=== PATIENT | male | born 1980 | race African-American/Black ===

== ENCOUNTER 2017-08-01 19:43 | Emergency (ER) | payer BC, OTHER ==
[~2017-08-01] VITALS: Ht 175.3 cm; Wt 63.5 kg
[~2017-08-01 19:43] MED LIST: PERCOCET 5-3251 EACH PO; VICODIN 5-5001 EACH PO
[2017-08-01 20:15] VITALS: BP 120/74
[2017-08-01] MEDS ORDERED: Mylanta II UD 30ml ORAL ONE (20:15)
[2017-08-01] MEDS ORDERED: Lidocaine 2% Visc 15ml soln ORAL ONE (20:15)
[2017-08-01] MEDS ORDERED: Dicyclomine HCl 10mg/5ml oral soln ORAL ONE (20:15)
[2017-08-01 21:01] LABS: BASOPHILS % (AUTO) 0.9 % (0.0-2.0); EOSINOPHILS % (AUTO) 1.4 % (0.0-3.0); MEAN CORPUSCULAR VOLUME 100 FL (80-99); MONOCYTES % (AUTO) 14.4 % (1.0-10.0); NEUTROPHILS % (AUTO) 59.4 % (45.0-75.0); PLATELET COUNT 178 K/UL (150-450); RED BLOOD COUNT 4.76 M/UL (4.70-6.10); RED CELL DISTRIBUTION WIDTH 13.3 % (11.6-14.8); WHITE BLOOD COUNT 5.6 K/UL (4.8-10.8)
[2017-08-01 21:08] LABS: ANION GAP 5 mmol/L (5-15); CALCIUM 8.8 MG/DL (8.5-10.1); CARBON DIOXIDE 30 MMOL/L (21-32); CHLORIDE 104 MMOL/L (98-107); CREATININE 1.1 MG/DL (0.55-1.30); GLOMERULAR FILTRATION RATE > 60 mL/min (>60); POTASSIUM 3.8 MMOL/L (3.5-5.1); SODIUM 139 MMOL/L (136-145)
[2017-08-01 21:12] LABS: ALANINE AMINOTRANSFERASE 24 U/L (12-78); ALBUMIN/GLOBULIN RATIO 0.9 (1.0-2.7); ASPARTATE AMINO TRANSFERASE 27 U/L (15-37); LIPASE 143 U/L (73-393); TOTAL PROTEIN 7.4 G/DL (6.4-8.2)
[2017-08-01] MEDS ORDERED: ZOFRAN ODT4 MG ORAL (22:01)
[2017-08-01] MEDS ORDERED: RANITIDINE HCL150 MG ORAL (22:01)
[2017-08-01 22:10] VITALS: BP 125/76
[2017-08-01 22:15] VITALS: BP 125/76
--- NOTE | 2017-08-05 06:46 | Emergency Room Report ---
History of Present Illness General Chief Complaint: Abdominal Pain Source: Patient Present Illness HPI 36-year-old male presents ED complaining of abdominal pain. Started 2 days ago. Burning, epigastric, 5/10, nonradiating. Notes multiple episodes of vomiting. Denies fevers or chills. Denies chest pain shortness of breath. Denies any diarrhea. No other aggravating relieving factors. Denies any other associated symptoms Allergies: Coded Allergies: No Known Allergies (Unverified , 08/25/12) Patient History Past Medical History: none Past Surgical History: none Pertinent Family History: none Social History: Denies: smoking, alcohol use, drug use Immunizations: UTD Reviewed Nursing Documentation: PMH: Agreed, PSxH: Agreed Nursing Documentation-PMH Past Medical History: No Stated History Review of Systems All Other Systems: negative except mentioned in HPI Physical Exam Vital Signs Date Time Temp Pulse Resp B/P (MAP) Pulse Ox O2 Delivery O2 Flow Rate FiO2 08/01/17 20:01 97.7 66 18 119/78 97 Room Air Sp02 EP Interpretation: reviewed, normal General Appearance: no apparent distress, alert, GCS 15, non-toxic Head: normocephalic Eyes: bilateral eye normal inspection, bilateral eye PERRL ENT: normal ENT inspection Neck: normal inspection Respiratory: chest non-tender, lungs clear, normal breath sounds, speaking full sentences Cardiovascular #1: regular rate, rhythm, no edema Gastrointestinal: tenderness - epigastric Rectal: deferred Genitourinary: no CVA tenderness Musculoskeletal: back normal Neurologic: alert, oriented x3, responsive, motor strength/tone normal, sensory intact, speech normal Psychiatric: normal inspection Skin: normal inspection Lymphatic: normal inspection Medical Decision Making Diagnostic Impression: Primary Impression: Gastritis Qualified Codes: K29.00 - Acute gastritis without bleeding ER Course Hospital Course 36-year-old M presents to ED with epigastric pain with N/V. differential diagnosis: gastritis, SBO, cholecystits Clinical course Patient placed on stretcher. On playground monitor. After initial history and physical I ordered labs, IV fluids, Zofran and pepcid Labs - no leukocytosis, no electrolyte abnormalities, LFTs normal, UA unremarkable Upon reassessment, patient states pain has improved. findings consistent with gastritis I feel this is a highly complex case requiring extensive working including EKG/ Rhythm strip, Xray/CT/US, Blood/urine lab work, repeat exams while in ED, and administration of strong opiates/narcotics for pain control, admission to hospital or close patient follow up. Diagnosis - gastritis Stable and discharged to home with prescriptions for Zantac, zantac. Followup with PMD. Return to ED if symptoms recur or worsen Labs Test 08/01/17 20:20 White Blood Count 5.6 K/UL (4.8-10.8) Red Blood Count 4.76 M/UL (4.70-6.10) Hemoglobin 15.7 G/DL (14.2-18.0) Hematocrit 47.5 % (42.0-52.0) Mean Corpuscular Volume 100 FL (80-99) Mean Corpuscular Hemoglobin 33.0 PG (27.0-31.0) Mean Corpuscular Hemoglobin Concent 33.0 G/DL (32.0-36.0) Red Cell Distribution Width 13.3 % (11.6-14.8) Platelet Count 178 K/UL (150-450) Mean Platelet Volume 6.0 FL (6.5-10.1) Neutrophils (%) (Auto) 59.4 % (45.0-75.0) Lymphocytes (%) (Auto) 24.0 % (20.0-45.0) Monocytes (%) (Auto) 14.4 % (1.0-10.0) Eosinophils (%) (Auto) 1.4 % (0.0-3.0) Basophils (%) (Auto) 0.9 % (0.0-2.0) Sodium Level 139 MMOL/L (136-145) Potassium Level 3.8 MMOL/L (3.5-5.1) Chloride Level 104 MMOL/L (98-107) Carbon Dioxide Level 30 MMOL/L (21-32) Anion Gap 5 mmol/L (5-15) Blood Urea Nitrogen 12 mg/dL (7-18) Creatinine 1.1 MG/DL (0.55-1.30) Estimat Glomerular Filtration Rate > 60 mL/min (>60) Glucose Level 75 MG/DL (74-106) Calcium Level 8.8 MG/DL (8.5-10.1) Total Bilirubin 0.3 MG/DL (0.2-1.0) Aspartate Amino Transf (AST/SGOT) 27 U/L (15-37) Alanine Aminotransferase (ALT/SGPT) 24 U/L (12-78) Alkaline Phosphatase 89 U/L (46-116) Total Protein 7.4 G/DL (6.4-8.2) Albumin 3.6 G/DL (3.4-5.0) Globulin 3.8 g/dL Albumin/Globulin Ratio 0.9 (1.0-2.7) Lipase 143 U/L (73-393) Last Vital Signs Date Time Temp Pulse Resp B/P (MAP) Pulse Ox O2 Delivery O2 Flow Rate FiO2 08/01/17 22:15 97.6 74 16 125/76 99 Room Air Status: improved Disposition: HOME, SELF-CARE Condition: Stable Scripts Ranitidine Hcl* (ZANTAC*) 150 Mg Tablet 150 MG ORAL TWICE A DAY, #30 TAB Prov: ANNE MARIE DELANEY M.D. 08/01/17 Ondansetron Odt* (ZOFRAN ODT*) 4 Mg Tab.rapdis 4 MG ORAL Q6H Y for Nausea & Vomiting, #30 TAB 0 Refills Prov: ANNE MARIE DELANEY M.D. 08/01/17 Patient Instructions: Gastritis, Adult ANNE MARIE DELANEY M.D. Aug 05, 2017 06:46
== END 2017-08-01 22:15 | disposition home or self-care (01) ==
LOC: EMR 20:32
DX: K29.70 Gastritis, unspecified, without bleeding (principal)
CPT/HCPCS: 36415; 80053; 83690; 85025; 96361; 96374; 96375; 99284; J2405; S0028

== ENCOUNTER 2018-12-22 09:06 | Emergency (ER) | payer OTHER ==
[~2018-12-22] VITALS: Ht 172.7 cm; Wt 65.8 kg
[~2018-12-22 09:06] MED LIST changes: +RANITIDINE HCL150 MG ORAL; +ZOFRAN ODT4 MG ORAL
[2018-12-22 09:19] VITALS: BP 127/83
[2018-12-22] MEDS ORDERED: NKM (09:23)
--- NOTE | 2018-12-22 09:26 | NUR ---
ED Nurse Note: Pt. AAox4. Ambulatory. came in to ER due to lower back pain and bilateral posterior leg pain x 3 days. 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
--- NOTE | 2018-12-22 09:57 | Emergency Room Report ---
History of Present Illness General Chief Complaint: Pain Source: Patient Present Illness HPI The patient states that 3 days ago he developed pain in his lower legs. He states the pain started in his calves. He states they were throbbing and there was soreness. He states the pain then moved to the back of his legs to his hamstring area and up to his low back. He states the pain is diffuse on both lower extremities and he has difficulty getting comfortable. He did have some wrist pain on Saturday that states that has since resolved. He denies recent illness. He denies cough or congestion. He denies sore throat. He denies neck pain. He denies headache. He denies blurry vision. He denies change in his activity. He denies any workout or long walk. He states that for his job he is constantly walking and doing heavy lifting, however, he has been doing this for 8 years. He states that he has never had symptoms like this. He denies weakness. He denies tingling or numbness. He denies swelling. He states that he does drink alcohol, smoke tobacco and uses marijuana. He currently denies using any other drugs. He is not on any medications. He has no other complaints. Allergies: Coded Allergies: No Known Allergies (Unverified , 08/25/12) Patient History Past Medical History: none, see triage record Social History: Reports: smoking, alcohol use, drug use - THC Reviewed Nursing Documentation: PMH: Agreed; PSxH: Agreed Nursing Documentation-PM Past Medical History: No Stated History Review of Systems All Other Systems: negative except mentioned in HPI Physical Exam Vital Signs Date Time Temp Pulse Resp B/P (MAP) Pulse Ox O2 Delivery O2 Flow Rate FiO2 12/22/18 09:19 98.4 60 16 98 Room Air 12/22/18 09:19 127/83 Sp02 EP Interpretation: reviewed, normal General Appearance: no apparent distress, alert, GCS 15, non-toxic Head: normocephalic, atraumatic Eyes: bilateral eye normal inspection, bilateral eye PERRL ENT: hearing grossly normal, normal pharynx, no angioedema, normal voice Neck: full range of motion, supple/symm/no masses Respiratory: chest non-tender, lungs clear, normal breath sounds, no respiratory distress, no retraction, no accessory muscle use, speaking full sentences Cardiovascular #1: regular rate, rhythm, no edema Gastrointestinal: normal bowel sounds, non tender, soft, non-distended, no guarding, no rebound Rectal: deferred Musculoskeletal: back normal, gait/station normal, normal range of motion, tender - Mildly TTP along the calves and hamstrings. No TTP in thighs. No swelling or erythema. Neurologic: alert, oriented x3, responsive, motor strength/tone normal, sensory intact, speech normal Psychiatric: judgement/insight normal, memory normal, mood/affect normal, no suicidal/homicidal ideation Skin: normal color, no rash, warm/dry, well hydrated Medical Decision Making Diagnostic Impression: Primary Impression: Muscular aches ER Course Had symmetric and diffuse muscle aches in the bilateral lower extremities. The patient describes symptoms starting from the calves and moving up to the low back. Differential diagnosis: Rhabdomyolysis, Guillain-Frank syndrome, viral syndrome , lumbar radiculopathy, myositis, electrolyte abnormalities, muscle aches to name a few. Given the extensive differential, I did obtain basic labs to include a CBC, CMP , CK and ESR and CRP which showed no significant findings. I also obtained bilateral venous ultrasound to assess for DVT. This was negative for DVT Bilaterally. Lumbar spine x-ray showed no significant abnormalities. See official report in the EMR. Laboratory Tests Test 12/22/18 09:58 12/22/18 10:50 White Blood Count 5.6 K/UL (4.8-10.8) 7.2 K/UL (4.8-10.8) Red Blood Count 4.76 M/UL (4.70-6.10) 4.73 M/UL (4.70-6.10) Hemoglobin 15.4 G/DL (14.2-18.0) 15.2 G/DL (14.2-18.0) Hematocrit 44.9 % (42.0-52.0) 45.1 % (42.0-52.0) Mean Corpuscular Volume 94 FL (80-99) 95 FL (80-99) Mean Corpuscular Hemoglobin 32.4 PG (27.0-31.0) H 32.1 PG (27.0-31.0) H Mean Corpuscular Hemoglobin Concent 34.4 G/DL (32.0-36.0) 33.6 G/DL (32.0-36.0) Red Cell Distribution Width 12.4 % (11.6-14.8) 12.3 % (11.6-14.8) Platelet Count K/UL (150-450) 175 K/UL (150-450) Mean Platelet Volume 10.5 FL (6.5-10.1) H 5.0 FL (6.5-10.1) L Neutrophils (%) (Auto) % (45.0-75.0) 68.6 % (45.0-75.0) Lymphocytes (%) (Auto) % (20.0-45.0) 23.4 % (20.0-45.0) Monocytes (%) (Auto) % (1.0-10.0) 6.5 % (1.0-10.0) Eosinophils (%) (Auto) % (0.0-3.0) 0.4 % (0.0-3.0) Basophils (%) (Auto) % (0.0-2.0) 1.1 % (0.0-2.0) Differential Total Cells Counted 100 Neutrophils % (Manual) 60 % (45-75) Lymphocytes % (Manual) 34 % (20-45) Monocytes % (Manual) 4 % (1-10) Eosinophils % (Manual) 2 % (0-3) Basophils % (Manual) 0 % (0-2) Band Neutrophils 0 % (0-8) Platelet Estimate Adequate Platelet Morphology Normal Red Blood Cell Morphology Normal Sodium Level 138 MMOL/L (136-145) Potassium Level 5.2 MMOL/L (3.5-5.1) H Chloride Level 106 MMOL/L (98-107) Carbon Dioxide Level 28 MMOL/L (21-32) Anion Gap 4 mmol/L (5-15) L Blood Urea Nitrogen 12 mg/dL (7-18) Creatinine 0.8 MG/DL (0.55-1.30) Estimate Glomerular Filtration Rate > 60 mL/min (>60) Glucose Level 93 MG/DL (74-106) Calcium Level 8.7 MG/DL (8.5-10.1) Total Bilirubin 0.4 MG/DL (0.2-1.0) Aspartate Amino Transferase (AST) 48 U/L (15-37) H Alanine Aminotransferase (ALT) 44 U/L (12-78) Alkaline Phosphatase 98 U/L (46-116) Total Creatine Kinase 554 U/L (26-308) H C-Reactive Protein, Quantitative < 0.4 mg/dL (0.00-0.90) Total Protein 7.2 G/DL (6.4-8.2) Albumin 3.7 G/DL (3.4-5.0) Globulin 3.5 g/dL Albumin/Globulin Ratio 1.1 (1.0-2.7) Urine Opiates Screen Negative (NEGATIVE) Urine Barbiturates Screen Negative (NEGATIVE) Phencyclidine (PCP) Screen Negative (NEGATIVE) Urine Amphetamines Screen Negative (NEGATIVE) Urine Benzodiazepines Screen Negative (NEGATIVE) Urine Cocaine Screen Negative (NEGATIVE) Urine Marijuana (THC) Screen Positive (NEGATIVE) H Erythrocyte Sedimentation Rate Pending Other X-Ray Diagnostic Results Other X-Ray Diagnostic Results : X-Ray ordered: L-spine xray # of Views/Limited Vs Complete: Complete Indication: Pain EP Interpretation: Yes Interpretation: no dislocation, no soft tissue swelling, no fractures, nonspecific bowel gas Impression: No acute disease Electronically Signed by: Faviola Chaudhry DO CT/MRI/US Diagnostic Results CT/MRI/US Diagnostic Results : Imaging Test Ordered: BLE US venous Impression No DVT. See official report. Last Vital Signs Date Time Temp Pulse Resp B/P (MAP) Pulse Ox O2 Delivery O2 Flow Rate FiO2 12/22/18 09:19 98.4 60 16 127/83 98 Room Air Status: improved Disposition: HOME, SELF-CARE Condition: Improved Faviola Chaudhry DO December 22, 2018 09:57
[2018-12-22 10:25] LABS: HEMATOCRIT 44.9 % (42.0-52.0); HEMOGLOBIN 15.4 G/DL (14.2-18.0); MEAN CORPUSCULAR VOLUME 94 FL (80-99); RED BLOOD COUNT 4.76 M/UL (4.70-6.10); RED CELL DISTRIBUTION WIDTH 12.4 % (11.6-14.8); WHITE BLOOD COUNT 5.6 K/UL (4.8-10.8)
[2018-12-22 10:28] LABS: ANION GAP 4 mmol/L (5-15); BLOOD UREA NITROGEN 12 mg/dL (7-18); CALCIUM 8.7 MG/DL (8.5-10.1); CARBON DIOXIDE 28 MMOL/L (21-32); CHLORIDE 106 MMOL/L (98-107); POTASSIUM 5.2 MMOL/L (3.5-5.1); SODIUM 138 MMOL/L (136-145)
[2018-12-22 10:32] LABS: ALANINE AMINOTRANSFERASE 44 U/L (12-78); ALBUMIN 3.7 G/DL (3.4-5.0); ALBUMIN/GLOBULIN RATIO 1.1 (1.0-2.7); ALKALINE PHOSPHATASE 98 U/L (46-116); ASPARTATE AMINO TRANSFERASE 48 U/L (15-37); BILIRUBIN,TOTAL 0.4 MG/DL (0.2-1.0); CREATINE KINASE 554 U/L (26-308)
[2018-12-22 10:39] LABS: CREATININE 0.8 MG/DL (0.55-1.30)
[2018-12-22 11:05] LABS: BASOPHILS % (AUTO) 1.1 % (0.0-2.0); EOSINOPHILS % (AUTO) 0.4 % (0.0-3.0); HEMATOCRIT 45.1 % (42.0-52.0); HEMOGLOBIN 15.2 G/DL (14.2-18.0); LYMPHOCYTES % (AUTO) 23.4 % (20.0-45.0); MEAN CORPUSCULAR VOLUME 95 FL (80-99); MONOCYTES % (AUTO) 6.5 % (1.0-10.0); NEUTROPHILS % (AUTO) 68.6 % (45.0-75.0); PLATELET COUNT 175 K/UL (150-450); RED BLOOD COUNT 4.73 M/UL (4.70-6.10); RED CELL DISTRIBUTION WIDTH 12.3 % (11.6-14.8); WHITE BLOOD COUNT 7.2 K/UL (4.8-10.8)
[2018-12-22 11:28] LABS: PLATELET COUNT 175 K/UL (150-450)
--- NOTE | 2018-12-22 11:36 | Diagnostic Imaging Report ---
Indication: Back pain Comparison: None Findings: 3 views of the lumbar spine were obtained. No acute fracture or malalignment is identified. Vertebral body heights and disk spaces are well maintained. Posterior elements are unremarkable. Impression: No acute findings.
[2018-12-22] MEDS ORDERED: IBUPROFEN800 MG ORAL (12:06)
[2018-12-22] MEDS ORDERED: CYCLOBENZAPRINE10 MG ORAL (12:06)
[2018-12-22 12:25] VITALS: BP 127/83
--- NOTE | 2018-12-22 12:25 | NUR ---
ER DISCHARGE NOTE: Patient is cleared to be discharged per ERMD, pt is aox4, on room air, with stable vital signs. pt was given dc and prescription instructions, pt was able to verbalize understanding, pt id band removed without complications. pt is able to ambulate with steady gait. pt took all belongings.
== END 2018-12-22 12:25 | disposition home or self-care (01) ==
LOC: EMR 10:00
DX: M79.662 Pain in left lower leg (principal); M79.661 Pain in right lower leg; M54.5 Low back pain; F17.200 Nicotine dependence, unspecified, uncomplicated; F12.90 Cannabis use, unspecified, uncomplicated
CPT/HCPCS: 36415; 72020; 80053; 80307; 82550; 85007; 85025; 85651; 86140; 93970; 99284